=== PATIENT | male | born 1995 | race Caucasian/White ===

== ENCOUNTER → 2019-09-11 | Outpatient (REF) ==
--- NOTE | 2019-09-11 11:12 | Diagnostic Imaging Report ---
INDICATION: Occupational exposure to silica. TIME OF EXAM: 11:04 AM No prior studies available for comparison. The heart size is normal. Lungs are clear. No infiltrates are seen. The pulmonary vascularity is normal. No effusion or pneumothorax is identified. IMPRESSION: No acute cardiopulmonary process is detected. Dictated by: Dictated on workstation # [id number]
== END | disposition home or self-care (01) ==
LOC: OCC 10:28
PROVIDERS: ATTEND Nurse Practitioner Family
CPT/HCPCS: 71045